=== PATIENT | female | born 2000 | race Caucasian/White ===

== ENCOUNTER 2024-10-18 04:33 | Day surgery (SDC) | payer OTHER ==
[2024-10-17 10:34] VITALS: BMI 20.5
[2024-10-18] MEDS ORDERED: IBUPROFEN 800 MG/8 ML IJ IVPB PRN (06:46)
[2024-10-18] MEDS ORDERED: oxyCODONE HCL 5 MG TABLET PO PRN (06:46)
[2024-10-18] MEDS ORDERED: IBUPROFEN 600 MG TABLET (FP) PO PRN (06:46)
[2024-10-18] MEDS ORDERED: ELECTROLYTE-148 SOLN 1,000 ML IV SCH (07:00)
[2024-10-18] MEDS ORDERED: MIDAZOLAM HCL 2 MG/2 ML SINGLE DOSE VIAL ONE (07:44)
[2024-10-18] MEDS ORDERED: ONDANSETRON 4 MG/2 ML VIAL ONE ×2 (07:44→09:45)
[2024-10-18] MEDS ORDERED: PROPOFOL 20 ML ONE ×2 (07:44→07:57)
[2024-10-18] MEDS ORDERED: DEXAMETHASONE SOD PHOSPHATE 4 MG/1 ML VIAL ONE (07:44)
[2024-10-18] MEDS ORDERED: KETOROLAC TROMETHAMINE 30 MG/1 ML VIAL ONE (07:44)
[2024-10-18] MEDS ORDERED: SUCCINYLCHOLINE CHLORIDE 200 MG/10 ML SYRINGE ONE (07:44)
[2024-10-18] MEDS: ONDANSETRON 4 MG/2 ML VIAL IVPUSH PRN (09:47)
[2024-10-18 09:58] VITALS: RESP 16
[2024-10-18] MEDS: LACTATED RINGERS SOLUTION 1,000 ML IV SCH (10:30)
[2024-10-18 13:15] VITALS: BP 92/54; PULSE 63; TEMP 97.7
== END 2024-10-18 13:37 | disposition home or self-care (01) ==
LOC: JASU-SURG 04:33
PROVIDERS: ATTEND Obstetrics & Gynecology
PROC: 0UB98ZZ Excision of Uterus, Via Natural or Artificial Opening Endoscopic (ICD-10-PCS; principal; 2024-10-18 07:30)
DX: D25.0 Submucous leiomyoma of uterus (principal); N93.9 Abnormal uterine and vaginal bleeding, unspecified
CPT/HCPCS: 81025; 88305-TC; 94760